=== PATIENT | male | born 1990 | race Two or more races ===

== ENCOUNTER 2023-10-30 17:16 | Emergency (ER) | payer MEDICAID ==
[~2023-10-30] VITALS: Ht 180.3 cm; Wt 100.7 kg
[2023-10-30 17:27] VITALS: TEMP 98.2
[2023-10-30 18:07] LABS: APPEARANCE,URINE CLEAR (CLEAR); BILIRUBIN,URINE NEGATIVE (NEGATIVE); BLOOD, URINE NEGATIVE Ery/uL (NEGATIVE); COLOR,URINE YELLOW (YELLOW); KETONES,URINE NEGATIVE (NEGATIVE); LEUKOCYTE ESTERASE ,URINE NEGATIVE (NEGATIVE); NITRITE, URINE NEGATIVE (NEGATIVE); PH,URINE 5.5 (5.0-8.0); PROTEIN,URINE NEGATIVE (NEGATIVE); UGLUCOSE NEGATIVE (NEGATIVE); UROBILINOGEN,URINE 0.2 EU/dL (0.2)
[2023-10-30] MEDS ORDERED: KETOROLAC TROMETHAMINE 15 MG/ML VIAL ONE (18:19)
[2023-10-30] MEDS: IV NS 0.9% 1,000 ML BAG IV ONE (19:05)
[2023-10-30] MEDS: KETOROLAC TROMETHAMINE 15 MG/ML VIAL IV ONE (19:07)
[2023-10-30 19:22] LABS: BASOPHILS % (AUTO) 0.5 % (0.0-2.0); EOSINOPHILS # (AUTO) 0.1 K/uL (0.0-0.7); EOSINOPHILS % (AUTO) 0.9 % (0.0-6.0); HEMATOCRIT 43 % (39-51); HEMOGLOBIN 14.6 g/dL (13.5-17.5); LYMPHOCYTES # (AUTO) 1.8 K/uL (0.8-4.8); LYMPHOCYTES % (AUTO) 25.2 % (20.0-44.0); MEAN CORPUSCULAR HEMOGLOBIN 30 PG (26.0-33.0); MEAN CORPUSCULAR HGB CONC 34 g/dl (31.0-36.0); MEAN CORPUSCULAR VOLUME 86 fL (80-96); MONOCYTES # (AUTO) 0.4 K/uL (0.1-1.30); MONOCYTES % (AUTO) 6.1 % (2.0-12.0); NEUTROPHILS # (AUTO) 4.7 K/uL (1.8-8.9); NEUTROPHILS % (AUTO) 67.3 % (43.0-81.0); PLATELET COUNT (AUTO) 284 K/uL (150-450); RED BLOOD CELL COUNT(AUTO) 4.95 MIL/uL (4.5-6.0); RED CELL DISTRIBUTION WIDTH 12.8 % (11.5-15.0)
[2023-10-30 19:31] LABS: CALCIUM, SERUM 9.1 mg/dL (8.5-10.1); CARBON DIOXIDE 29 mmol/L (21-32); CHLORIDE 100 mmol/L (98-107); CREATININE 0.9 mg/dL (0.6-1.3); GLUCOSE 103 mg/dL (74-106); POTASSIUM 3.5 mmol/L (3.5-5.1); SODIUM SERUM 136 mmol/L (136-145); UREA NITROGEN, BLOOD 14 mg/dL (7-18)
[2023-10-30 19:37] LABS: ALANINE AMINOTRANSFERASE 23 U/L (12-78); ALBUMIN 3.8 g/dL (3.4-5.0); ALKALINE PHOSPHATASE 78 U/L (46-116); ASPARTATE AMINOTRANSFERASE 16 U/L (15-37); BILIRUBIN,DIRECT 0.1 mg/dL (0.0-0.2); BILIRUBIN,TOTAL 0.3 mg/dL (0.2-1.0); LIPASE 46 U/L (16-77); TOTAL PROTEIN, SERUM 7.9 g/dL (6.4-8.2)
[2023-10-30] MEDS ORDERED: ACET-2605 PO (20:12)
[2023-10-30] MEDS ORDERED: IBUP-1955 PO (20:12)
[2023-10-30 22:11] VITALS: BP 125/78; O2SAT 100
== END 2023-10-30 20:25 | disposition home or self-care (01) ==
LOC: ER 17:16
DX: R10.11 Right upper quadrant pain (principal); R10.31 Right lower quadrant pain; Z88.0 Allergy status to penicillin
CPT/HCPCS: 99285; 74176; 96374; 76705; 96361; 93005; 85025; 80048; 83690; 80076; 81003; 36415; 84484; J7030; J1885

== ENCOUNTER 2023-11-21 16:35 | Emergency (ER) | payer MEDICAID ==
[~2023-11-21 16:35] MED LIST: ACET-2605 PO; IBUP-1955 PO
== END 2023-11-21 17:59 | disposition left against medical advice (07) ==
LOC: ER 16:38
DX: R07.9 Chest pain, unspecified (principal); Z53.21 Procedure and treatment not carried out due to patient leaving prior to being seen by health care provider

== ENCOUNTER 2023-12-19 22:39 | Emergency (ER) | payer MEDICAID | END 2023-12-20 00:38 | disposition left against medical advice (07) | LOC: ER 22:44 | DX: T50.901A Poisoning by unspecified drugs, medicaments and biological substances, accidental (unintentional), initial encounter (principal); Z53.21 Procedure and treatment not carried out due to patient leaving prior to being seen by health care provider; Y92.89 Other specified places as the place of occurrence of the external cause ==

== ENCOUNTER 2024-06-29 02:41 | Emergency (ER) | payer MEDICAID ==
[~2024-06-29] VITALS: Ht 180.3 cm; Wt 97.1 kg
[2024-06-29] MEDS ORDERED: IBUPROFEN 400 MG TABLET ONE (03:21)
[2024-06-29] MEDS: IBUPROFEN 400 MG TABLET PO ONE (03:21)
[2024-06-29] MEDS ORDERED: ONDANSETRON 4 MG TAB.RAPDIS ONE (03:21)
[2024-06-29] MEDS: ONDANSETRON 4 MG TAB.RAPDIS PO ONE (03:21)
[2024-06-29] MEDS ORDERED: ONDA4TAB5 PO (03:49)
[2024-06-29 03:56] VITALS: BP 132/80; TEMP 98.5; O2SAT 99
== END 2024-06-29 03:58 | disposition home or self-care (01) ==
LOC: ER 02:49
DX: F07.81 Postconcussional syndrome (principal); Z79.1 Long term (current) use of non-steroidal anti-inflammatories (NSAID); Z79.899 Other long term (current) drug therapy; Z88.0 Allergy status to penicillin; Z88.1 Allergy status to other antibiotic agents
CPT/HCPCS: 99284; 70450; Q0162

== ENCOUNTER 2024-07-06 15:31 | Emergency (ER) | payer MEDICAID ==
[~2024-07-06] VITALS: Ht 180.3 cm; Wt 97.5 kg
[~2024-07-06 15:31] MED LIST changes: +ONDA4TAB5 PO
[2024-07-06] MEDS: IV NS 0.9% 1,000 ML BAG IV ONE (16:30)
[2024-07-06] MEDS: KETOROLAC TROMETHAMINE INJ 30 MG/ML VIAL IV ONE (16:30)
[2024-07-06] MEDS: ONDANSETRON HCL/PF 4 MG/2 ML VIAL IVP ONE (16:30)
[2024-07-06] MEDS ORDERED: ONDANSETRON HCL/PF 4 MG/2 ML VIAL ONE (16:39)
[2024-07-06] MEDS ORDERED: KETOROLAC TROMETHAMINE INJ 30 MG/ML VIAL ONE (16:39)
[2024-07-06 16:55] LABS: BASOPHILS % (AUTO) 0.6 % (0.0-2.0); EOSINOPHILS % (AUTO) 0.5 % (0.0-6.0); HEMATOCRIT 45 % (39-51); LYMPHOCYTES # (AUTO) 1.4 K/uL (0.8-4.8); LYMPHOCYTES % (AUTO) 21.2 % (20.0-44.0); MEAN CORPUSCULAR HEMOGLOBIN 29 PG (26.0-33.0); MEAN CORPUSCULAR HGB CONC 34 g/dl (31.0-36.0); MEAN CORPUSCULAR VOLUME 86 fL (80-96); MONOCYTES # (AUTO) 0.4 K/uL (0.1-1.30); MONOCYTES % (AUTO) 5.7 % (2.0-12.0); NEUTROPHILS # (AUTO) 4.9 K/uL (1.8-8.9); PLATELET COUNT (AUTO) 254 K/uL (150-450); RED BLOOD CELL COUNT(AUTO) 5.15 MIL/uL (4.5-6.0); RED CELL DISTRIBUTION WIDTH 12.7 % (11.5-15.0); WHITE BLOOD COUNT (AUTO) 6.8 K/uL (4.3-11.0)
[2024-07-06 16:58] LABS: APPEARANCE,URINE CLEAR (CLEAR); BILIRUBIN,URINE NEGATIVE (NEGATIVE); BLOOD, URINE NEGATIVE Ery/uL (NEGATIVE); COLOR,URINE YELLOW (YELLOW); KETONES,URINE NEGATIVE (NEGATIVE); LEUKOCYTE ESTERASE ,URINE NEGATIVE (NEGATIVE); NITRITE, URINE NEGATIVE (NEGATIVE); PH,URINE 6.5 (5.0-8.0); PROTEIN,URINE TRACE mg/dl (NEGATIVE); UGLUCOSE NEGATIVE (NEGATIVE); UROBILINOGEN,URINE 0.2 EU/dL (0.2)
[2024-07-06 17:03] LABS: CALCIUM, SERUM 9.5 mg/dL (8.5-10.1); CREATININE 0.9 mg/dL (0.6-1.3); POTASSIUM 4.3 mmol/L (3.5-5.1)
[2024-07-06 17:09] LABS: ALBUMIN 3.9 g/dL (3.4-5.0); BILIRUBIN,DIRECT 0.1 mg/dL (0.0-0.2); BILIRUBIN,TOTAL 0.4 mg/dL (0.2-1.0); TOTAL PROTEIN, SERUM 8.2 g/dL (6.4-8.2)
[2024-07-06 17:30] LABS: ADD URINE CULTURE NO; BACTERIA,URINE None seen /HPF (None Seen); MUCUS,URINE Few /LPF (None Seen); RBC,URINE 0-2 /HPF (0-2); SQUAMOUS EPITHELIAL CELL,UR 0-2 /HPF (None Seen); WBC,URINE 0-2 /HPF (0-3)
[2024-07-06 17:38] LABS: INR 0.95 (0.91-1.10); PARTIAL THROMBOPLASTIN TIME 24.8 SEC (24.3-34.3); PROTHROMBIN TIME 10.1 SECS (9.2-11.1)
[2024-07-06 20:08] VITALS: BP 131/71; TEMP 98; O2SAT 99
== END 2024-07-06 20:08 | disposition home or self-care (01) ==
LOC: ER 15:31
DX: R10.31 Right lower quadrant pain (principal); M54.59 Other low back pain; R11.2 Nausea with vomiting, unspecified; Z88.0 Allergy status to penicillin; Z88.8 Allergy status to other drugs, medicaments and biological substances
CPT/HCPCS: 99285; 74176; 96374; 96361; 96375; 85025; 80048; 83690; 80076; 81001; 36415; 85730; J1885; J2405; J7030

== ENCOUNTER 2024-08-30 11:55 | Emergency (ER) | payer MEDICAID ==
[~2024-08-30] VITALS: Ht 180.3 cm; Wt 97.5 kg
[2024-08-30 12:45] LABS: BASOPHILS % (AUTO) 0.5 % (0.0-2.0); EOSINOPHILS # (AUTO) 0.1 K/uL (0.0-0.7); EOSINOPHILS % (AUTO) 0.7 % (0.0-6.0); HEMATOCRIT 43 % (39-51); LYMPHOCYTES # (AUTO) 1.5 K/uL (0.8-4.8); LYMPHOCYTES % (AUTO) 19.4 % (20.0-44.0); MEAN CORPUSCULAR HEMOGLOBIN 30 PG (26.0-33.0); MEAN CORPUSCULAR HGB CONC 35 g/dl (31.0-36.0); MEAN CORPUSCULAR VOLUME 86 fL (80-96); MONOCYTES # (AUTO) 0.5 K/uL (0.1-1.30); MONOCYTES % (AUTO) 6.6 % (2.0-12.0); NEUTROPHILS # (AUTO) 5.6 K/uL (1.8-8.9); NEUTROPHILS % (AUTO) 72.8 % (43.0-81.0); PLATELET COUNT (AUTO) 247 K/uL (150-450); RED BLOOD CELL COUNT(AUTO) 4.98 MIL/uL (4.5-6.0); RED CELL DISTRIBUTION WIDTH 12.9 % (11.5-15.0); WHITE BLOOD COUNT (AUTO) 7.7 K/uL (4.3-11.0)
[2024-08-30] MEDS ORDERED: LIDO30AD10 TP (12:52)
[2024-08-30] MEDS ORDERED: KETOROLAC TROMETHAMINE 15 MG/ML VIAL ONE (12:52)
[2024-08-30] MEDS ORDERED: METH4TAB17 PO (12:52)
[2024-08-30] MEDS ORDERED: IBUP-1955 PO (12:52)
[2024-08-30] MEDS: IV NS 0.9% 1,000 ML BAG IV ONE (13:00)
[2024-08-30] MEDS: KETOROLAC TROMETHAMINE 15 MG/ML VIAL IV ONE (13:00)
[2024-08-30 13:01] LABS: CARBON DIOXIDE 30 mmol/L (21-32); CHLORIDE 103 mmol/L (98-107); CREATININE 0.9 mg/dL (0.6-1.3); GLUCOSE 104 mg/dL (74-106); POTASSIUM 4.2 mmol/L (3.5-5.1); SODIUM SERUM 141 mmol/L (136-145); UREA NITROGEN, BLOOD 16 mg/dL (7-18)
[2024-08-30 13:03] LABS: ALCOHOL, BLOOD < 3 mg/dL (0-10)
[2024-08-30 14:00] VITALS: BP 125/77; TEMP 98.3; O2SAT 99
== END 2024-08-30 14:01 | disposition home or self-care (01) ==
LOC: ER 12:07
DX: R07.89 Other chest pain (principal); M25.512 Pain in left shoulder; M54.2 Cervicalgia; R06.02 Shortness of breath; Z88.0 Allergy status to penicillin
CPT/HCPCS: 99285; 96374; 96361; 93005; 71045; 73030; 85025; 80048; 36415; 84443; 84484; 80320; J1885; G0480

== ENCOUNTER 2024-09-02 09:34 | Emergency (ER) | payer MEDICAID ==
[~2024-09-02] VITALS: Ht 180.3 cm; Wt 97.5 kg
[~2024-09-02 09:34] MED LIST changes: +LIDO30AD10 TP; +METH4TAB17 PO
[2024-09-02] MEDS ORDERED: TRAM50TA2 PO (09:55)
[2024-09-02] MEDS ORDERED: BACL5TAB PO (09:55)
[2024-09-02] MEDS ORDERED: KETO10TA2 PO (09:55)
[2024-09-02] MEDS ORDERED: KETOROLAC TROMETHAMINE INJ 60 MG/2 ML VIAL IM ONE (09:57)
[2024-09-02] MEDS ORDERED: BACLOFEN (10 MG) 10 MG TABLET ONE (09:57)
[2024-09-02] MEDS: KETOROLAC TROMETHAMINE INJ 60 MG/2 ML VIAL IM ONE (10:03)
[2024-09-02] MEDS: BACLOFEN (10 MG) 10 MG TABLET PO ONE (10:03)
[2024-09-02 10:47] VITALS: BP 137/3; TEMP 98.6; O2SAT 99
== END 2024-09-02 10:49 | disposition home or self-care (01) ==
LOC: ER 09:43
DX: M25.512 Pain in left shoulder (principal); F17.200 Nicotine dependence, unspecified, uncomplicated; Z79.899 Other long term (current) drug therapy; Z88.0 Allergy status to penicillin
CPT/HCPCS: 99283; 96372; J1885

== ENCOUNTER 2025-02-09 11:30 | Emergency (ER) | payer MEDICAID ==
[~2025-02-09] VITALS: Ht 180.3 cm; Wt 98.4 kg
[~2025-02-09 11:30] MED LIST changes: +BACL5TAB PO; +KETO10TA2 PO; +TRAM50TA2 PO
[2025-02-09] MEDS ORDERED: ACETAMINOPHEN ES 500 MG TABLET ONE (13:16)
[2025-02-09] MEDS: ACETAMINOPHEN ES 500 MG TABLET PO ONE (13:22)
[2025-02-09] MEDS ORDERED: ACET-2030 PO (13:37)
[2025-02-09 13:55] VITALS: BP 128/77; TEMP 98.5; O2SAT 99
== END 2025-02-09 13:56 | disposition home or self-care (01) ==
LOC: ER 11:36
DX: S93.491A Sprain of other ligament of right ankle, initial encounter (principal); F17.200 Nicotine dependence, unspecified, uncomplicated; Z79.899 Other long term (current) drug therapy; Z88.0 Allergy status to penicillin; W10.8XXA Fall (on) (from) other stairs and steps, initial encounter; Y93.89 Activity, other specified; Y92.89 Other specified places as the place of occurrence of the external cause; Y99.8 Other external cause status
CPT/HCPCS: 73610-TC; 73630-TC

== ENCOUNTER 2025-06-18 12:16 | Emergency (ER) | payer MEDICAID ==
[~2025-06-18] VITALS: Ht 180.3 cm; Wt 104.8 kg
[~2025-06-18 12:16] MED LIST changes: +ACET-2030 PO
[2025-06-18 12:21] VITALS: TEMP 98.4
[2025-06-18 12:46] LABS: APPEARANCE,URINE CLEAR (CLEAR); BLOOD, URINE Negative Ery/uL (NEGATIVE); LEUKOCYTE ESTERASE ,URINE Negative (NEGATIVE); NITRITE, URINE NEGATIVE (NEGATIVE); UGLUCOSE Negative (NEGATIVE)
[2025-06-18 12:49] LABS: ADD URINE CULTURE NO; SQUAMOUS EPITHELIAL CELL,UR Few /HPF (None Seen)
[2025-06-18 12:49] LABS: PLATELET COUNT (AUTO) 256 K/uL (150-450); RED BLOOD CELL COUNT(AUTO) 5.15 MIL/uL (4.5-6.0); RED CELL DISTRIBUTION WIDTH 12.9 % (11.5-15.0); WHITE BLOOD COUNT (AUTO) 7.9 K/uL (4.3-11.0)
[2025-06-18] MEDS: IV NS 0.9% 1,000 ML BAG IV ONE (12:53)
[2025-06-18 12:57] LABS: CALCIUM, SERUM 9.3 mg/dL (8.5-10.1); CREATININE 0.9 mg/dL (0.6-1.3); SODIUM SERUM 136.0 mmol/L (136-145); UREA NITROGEN, BLOOD 11.0 mg/dL (7-18)
[2025-06-18 13:02] LABS: ASPARTATE AMINOTRANSFERASE 17.0 U/L (15-37); TOTAL PROTEIN, SERUM 8.1 g/dL (6.4-8.2)
[2025-06-18] MEDS ORDERED: POLY17PO4 PO (15:03)
[2025-06-18] MEDS ORDERED: HYDR25SU33 RC (15:03)
[2025-06-18 15:18] VITALS: BP 122/72; O2SAT 98
== END 2025-06-18 15:19 | disposition home or self-care (01) ==
LOC: ER 13:53
DX: K64.8 Other hemorrhoids (principal); K92.2 Gastrointestinal hemorrhage, unspecified; R10.30 Lower abdominal pain, unspecified; F17.200 Nicotine dependence, unspecified, uncomplicated; Z79.899 Other long term (current) drug therapy; Z88.0 Allergy status to penicillin
CPT/HCPCS: 99284; 74176; 96360; 85025; 80048; 83690; 80076; 81001; 36415; J7030